=== PATIENT | female | born 1975 | race African-American/Black ===

== ENCOUNTER 2016-12-26 08:41 | Emergency (ER) | payer SELFPAY ==
[~2016-12-26] VITALS: Ht 180.3 cm; Wt 153.8 kg
[2016-12-26 08:42] VITALS: BP 148/103
== END 2016-12-26 09:37 | disposition home or self-care (01) ==
LOC: ER 08:41
DX: J40 Bronchitis, not specified as acute or chronic (principal); Z87.891 Personal history of nicotine dependence; E66.9 Obesity, unspecified; Z68.42 Body mass index [BMI] 45.0-49.9, adult